=== PATIENT | female | born 1990 | race Caucasian/White ===

== ENCOUNTER 2018-01-18 10:05 | Inpatient (IN) | payer OTHER, MEDICAID ==
--- NOTE | 2018-01-18 10:40 | HP ---
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 FOB is not a carrier Pertinent Past Surgical History: See Records Past Surgical History Comment: 1990 Gastrointestinal surgery to correct gastroschisis 2011 Inguinal hernia repair Pertinent Family History: See Records Family History Comment: Thyroid disease, HTN, asthma, SD, COPD - Antepartal Records Antepartal Records: Reviewed, Uncomplicated Review of Systems Constitutional: Uncomfortable - with UCs CV Complaint: No Respiratory: Shortness of Breath: No Gastrointestinal: No Nausea/Vomiting, Normal Bowel Movement Genitourinary: Leaking Fluid - Since arrival, No Dysuria Musculoskeletal: Contractions Neurological: No Headache, No Visual Changes Movement: Normal Exam Allergies/Adverse Reactions: Allergies MS Shellfish Allergy [Shellfish Allergy] Allergy (Intermediate, Verified 08:47) Rash BP 147/107 repeat 140/101 HR 112 RR 20 T 98.2 - Measurements Height: 5 ft 2 in Weight: 225 lb Weight in lbs: 225 Body Mass Index (BMI): 41.1 Pre- Weight: 190 lb Weight Gained This : 35 lbs and 0 ozs - Exam Abdomen: No Upper Quadrant Pain Breast: Breast Exam Deferred CVA: No CVA Tenderness Extremities: No Edema Heart: Normal Rhythm/Heart Sounds HEENT: No Significant Findings Lungs: Clear Bilaterally Rectal: Rectal Exam Deferred Thyroid: No Thyromegaly - Cervical Exam 4cm/100%/vtx -1 - Membranes Membrane Status: SROM - clear - Ultrasound/Biophysical Profile Ultrasound Status: Not Done EFM Findings - External Monitor Findings Baseline Heart Rate: 145 External Monitor Findings: Accelerations Present, No Pattern of Variable or Late Decelerations, Variability Moderate, Baseline Stable External Monitor Findings Comment: No evidence of metabolic acidemia Contractions: Regular, Strong, 45-90 Seconds Assessment/Plan - Reason for Visit Reason for Visit: Labor - Obstetrical Risk Factors Risk Factors Comment: Elevated BP on arrival of unknown significance - Plan Plan: Active Labor Plan Comment: Pt requests pain medication. Will draw BP labs to rule out pre-eclampsia - Date/Time of Admission Date of Admission: 01/18/18 Time of Admission: 10:30
[2018-01-18] MEDS ORDERED: OBEPIDURAL* 250 ML EPIDURAL ONE (10:49)
[2018-01-18 10:59] LABS: ABS Basophils 0.1 10^3/ul (0-0.2); ABS Eosinophils 0.1 10^3/ul (0-0.6); ABS Lymphocytes 2.7 10^3/ul (1.0-4.8); ABS Monocytes 1.2 10^3/ul (0-0.8); ABS Nucleated RBC 0 10^3/ul; Eosinophil % 0.6 % (0-6); Hematocrit 35 % (35-47); Lymphocyte % 14.7 % (25-47); Mean Corpuscular HGB Conc 34 g/dl (31-36); Mean Corpuscular Hemoglobin 30 pg (27-31); Mean Corpuscular Volume 88 fL (80-97); Mean Platelet Volume 7.8 um3 (7.4-10.4); Nucleated Red Blood Cells % 0; Platelet Count 311 10^3/ul (150-450); Red Blood Count 4.01 10^6/ul (4.0-5.4); Red Cell Distribution Width 13 % (10.5-15)
[2018-01-18 11:08] LABS: Urine Appearance Cloudy; Urine Blood 3+ (Negative); Urine Color Amber; Urine Ketones Negative (Negative); Urine Protein 2+(100 mg/dL) (Negative); Urine Red Blood Cell 3+(>10/hpf) (Absent); Urine Specific Gravity 1.016 (1.010-1.030); Urine Urobilinogen Negative (Negative); Urine White Blood Cell 3+(>20/hpf) (Absent)
[2018-01-18] MEDS ORDERED: Phenylephrine IV* 40 MCG/ML 10 ML SYRINGE IV PUSH PRN ×2 (11:27)
[2018-01-18] MEDS ORDERED: EPHEDrine (Pressors)* 50 MG/ML VIAL IV PUSH PRN ×2 (11:27)
[2018-01-18] MEDS ORDERED: Sodium Citrate/Citric Acid* 15 ML UDC PO PRN (11:27)
[2018-01-18] MEDS ORDERED: Famotidine TAB* 20 MG PO PRN (11:27)
[2018-01-18 11:30] LABS: EGFR Non-African American 86.7 (>60); Uric Acid 5.9 mg/dL (2.3-6.6)
[2018-01-18] MEDS ORDERED: OBEPIDURAL* 250 ML EPIDURAL SCH (12:00)
[2018-01-18] MEDS ORDERED: Oxytocin in LR* 20 UNITS/1,000 ML BAG IVPB ONE (19:24)
[2018-01-18] MEDS ORDERED: Acetaminophen TAB* 325 MG PO PRN (19:47)
[2018-01-18] MEDS ORDERED: Glycerin ADULT SUPP PR PRN (19:47)
[2018-01-18] MEDS ORDERED: Oxytocin in LR* 20 UNITS/1,000 ML BAG IVPB SCH (20:00)
[2018-01-18] MEDS ORDERED: Simethicone TAB* 80 MG TAB.CHEW PO SCH (21:00)
[2018-01-18] MEDS: Ibuprofen TAB* 600 MG PO PRN (21:17)
[2018-01-18] MEDS: Dibucaine 1% 28.35 GM TUBE PR PRN (21:18)
[2018-01-18] MEDS: Witch Hazel PAD* JAR TOPICAL PRN (21:18)
[2018-01-19] MEDS: Ibuprofen TAB* 600 MG PO PRN ×4 (03:29→22:29)
[2018-01-19 07:10] LABS: Hematocrit 34 % (35-47); Hemoglobin 11.3 g/dl (12.0-16.0); Mean Corpuscular HGB Conc 34 g/dl (31-36); Mean Corpuscular Hemoglobin 30 pg (27-31); Mean Corpuscular Volume 88 fL (80-97); Mean Platelet Volume 7.8 um3 (7.4-10.4); Platelet Count 299 10^3/ul (150-450); Red Blood Count 3.83 10^6/ul (4.0-5.4); Red Cell Distribution Width 13 % (10.5-15); White Blood Count 29.4 10^3/ul (3.5-10.8)
[2018-01-19 08:43] LABS: ABS Basophils 0.1 10^3/ul (0-0.2); ABS Eosinophils 0.1 10^3/ul (0-0.6); ABS Lymphocytes 3.7 10^3/ul (1.0-4.8); ABS Neutrophils 23.5 10^3/ul (1.5-7.7); ABS Nucleated RBC 0 10^3/ul; Eosinophil % 0.2 % (0-6); Lymphocyte % 12.7 % (25-47); Nucleated Red Blood Cells % 0.1
[2018-01-19] MEDS ORDERED: Ferrous Gluconate TAB* 324 MG TAB PO SCH (09:00)
[2018-01-19] MEDS: Docusate CAP* 100 MG PO SCH ×4 (09:29→20:33)
--- NOTE | 2018-01-19 15:02 | OP ---
OPERATIVE REPORT: DATE OF OPERATION: 01/18/18 DATE OF : 89 SURGEON: Rebel Montoya MD ANESTHESIA: 10 cc of 1% lidocaine. PRE-OP DIAGNOSIS: at 39 weeks, post spontaneous vaginal delivery over a third degree lacer ation in the posterior vaginal wall and perineum. POST-OP DIAGNOSIS: at 39 weeks, post spontaneous vaginal delivery over a third degree lace ration in the posterior vaginal wall and perineum. OPERATIVE PROCEDURE: Repair of third degree laceration with local anesthetic. DESCRIPTION OF PROCEDURE: The repair was done in the usual fashion with a combination of interrupted 3-0 Polysorb sutures and a running suture with good approximation at the perineal muscle capsule and also the vaginal mucosa and vaginal epithelium. The patient tolerated the procedure well. There wa s no blood loss. No complications. After the procedure was done, the patient's perineum was clean a nd the patient was left in the labor and delivery room. [id number]/[facility] #: [id number]
[2018-01-20] MEDS: Witch Hazel PAD* JAR TOPICAL PRN ×2 (00:25→19:58)
[2018-01-20] MEDS: Ibuprofen TAB* 600 MG PO PRN ×3 (04:59→19:58)
[2018-01-20] MEDS: Dibucaine 1% 28.35 GM TUBE PR PRN ×2 (05:08→19:58)
[2018-01-20 09:44] VITALS: BP 148/76
[2018-01-20] MEDS: Docusate CAP* 100 MG PO SCH ×3 (12:51→19:58)
== END 2018-01-20 20:30 | disposition home or self-care (01) | DRG 560 ==
LOC: MCHOBOUT 10:05 → MCHOB 10:28
PROVIDERS: ADMIT Midwife; ATTEND Midwife
PROC: 10E0XZZ Delivery of Products of Conception, External Approach (ICD-10-PCS; principal; 2018-01-18)
PROC: 4A1HX4Z Monitoring of Products of Conception, Cardiac Electrical Activity, External Approach (ICD-10-PCS; 2018-01-18)
PROC: 0KQM0ZZ Repair Perineum Muscle, Open Approach (ICD-10-PCS; 2018-01-18)
DX: O69.1XX0 Labor and delivery complicated by cord around neck, with compression, not applicable or unspecified (principal); Z68.41 Body mass index [BMI] 40.0-44.9, adult; Z37.0 Single live birth; O99.214 Obesity complicating childbirth; O16.4 Unspecified maternal hypertension, complicating childbirth; E66.01 Morbid (severe) obesity due to excess calories; Z3A.39 39 weeks gestation of pregnancy; Z91.013 Allergy to seafood; Z14.8 Genetic carrier of other disease; O70.1 Second degree perineal laceration during delivery
CPT/HCPCS: 36415; 80053; 81003; 81015; 84550; 85025; 86850; 86900; 86901; 87086; A9270-GY

== ENCOUNTER 2018-05-30 17:39 | Emergency (ER) | payer OTHER ==
--- NOTE | 2018-05-30 19:57 | ED ---
Dizziness - HPI Summary HPI Summary: This is Sherrie torres, documenting for attending Ant Hussein MD. This patient is a 28 year old F presenting to [facility] as instructed by here PCP, Dr. Cruz, with a chief complaint of intermittent dizziness and high blood pressure for the past week. She describes the dizziness as spinning, that is unchanged by position or movement. 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 She reports recent bloodwork with Dr. Cruz that revealed thyroid issues. Denies fever chills, CP, SOB abdominal pain, urinary symptoms, and trouble speaking or walking. Patient is four weeks post-. She denies possibility of ; she has IUD. I, Dr. Hussein personally performed the services described in this documentation as scribed in my presence and it is both accurate and complete. - History Of Current Complaint Chief Complaint: EDHypertension Stated Complaint: ?THYROID HEADACHES DIZZY Time Seen by Provider: 05/30/18 19:38 Hx Obtained From: Patient Onset/Duration: Still Present Timing: Intermittent Episode Lasting Character: Room Spinning, Dizzy Aggravating Factor(s): Nothing Alleviating Factor(s): Nothing Associated Signs And Symptoms: Positive: Other: - high blood pressure - Allergies/Home Medications Allergies/Adverse Reactions: Allergies Allergy/AdvReac Type Severity Reaction Status Date / Time shellfish derived Allergy Intermediate Rash Verified 05/30/18 18:23 PMH/Surg Hx/FS Hx/Imm Hx Endocrine/Hematology History: Denies: Hx Diabetes, Hx Systemic Lupus Erythematosus Cardiovascular History: Denies: Hx Congestive Heart Failure, Hx Hypertension Respiratory History: Reports: Hx Asthma - SLIGHT GI History: Reports: Other GI Disorders - GASTRIOSKESIS, PAIN RIGHT UMBILICAL 6 MO. WORSE NOW PER PT History: Denies: Hx Dialysis, Hx Renal Disease Musculoskeletal History: Denies: Hx Rheumatoid Arthritis Sensory History: Denies: Hx Contacts or Glasses, Hx Hearing Aid Opthamlomology History: Denies: Hx Contacts or Glasses - Cancer History Hx Chemotherapy: No - Surgical History Surgery Procedure, Year, and Place: GASTRIOSKESIS Hx Anesthesia Reactions: No Infectious Disease History: No Infectious Disease History: Denies: Traveled Outside the [place] in Last 30 Days - Family History Known Family History: Positive: Other - thyroid brother and grandmother - Social History Alcohol Use: None Substance Use Type: Reports: None Smoking Status (MU): Never Smoked Tobacco Review of Systems Positive: Other - high blood pressure. Negative: Fever, Chills Negative: Erythema Negative: Sore Throat Negative: Chest Pain Negative: Shortness Of Breath, Cough Negative: Abdominal Pain, Vomiting, Diarrhea, Nausea Negative: dysuria, hematuria Negative: Myalgia, Edema Negative: Rash Neurological: Negative - dizziness All Other Systems Reviewed And Are Negative: Yes Physical Exam - Summary Physical Exam Summary: Constitutional: Well-developed, Well-nourished, Alert. (-) Distressed Skin: Warm, Dry HENT: Normocephalic; Atraumatic Eyes: Conjunctiva normal Neck: Musculoskeletal ROM normal neck. (-) JVD, (-) Stridor, (-) Tracheal deviation Cardio: Rhythm regular, rate normal, Heart sounds normal; Intact distal pulses; The pedal pulses are 2+ and symmetric. Radial pulses are 2+ and symmetric. (-) Murmur Pulmonary/Chest wall: Effort normal. (-) Respiratory distress, (-) Wheezes, (-) Rales Abd: Soft. (-) Tenderness, (-) Distension, (-) Guarding, (-) Rebound Musculoskeletal: (-) Edema Lymph: (-) Cervical adenopathy Neuro: Alert, Oriented x3, Strength normal, Cranial nerves II-XII are grossly intact. (-) Dysmetria, (-) Nystagmus, (-) Ataxia by finger to nose testing, (-) Sensory deficit. Psych: Mood and affect Normal Triage Information Reviewed: Yes Vital Signs On Initial Exam: Initial Vitals Temp Pulse Resp BP Pulse Ox 98 F 110 20 127/86 98 05/30/18 18:16 05/30/18 18:16 05/30/18 18:16 05/30/18 18:16 05/30/18 18:16 Vital Signs Reviewed: Yes Diagnostics - Vital Signs Vital Signs Temp Pulse Resp BP Pulse Ox 05/30/18 18:16 98 F 110 20 127/86 98 - Laboratory Result Diagrams: 05/30/18 20:19 05/30/18 20:19 Lab Statement: Any lab studies that have been ordered have been reviewed, and results considered in the medical decision making process. Dizzy Course/Dx - Course Course Of Treatment: 28 year old F presenting to [facility] as instructed by here PCP , Dr. Cruz, with a chief complaint of intermittent dizziness and high blood pressure for the past week. She describes the dizziness as spinning, that is unchanged by position or movement. 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 She reports recent bloodwork with Dr. Cruz that revealed thyroid issues. Bloodwork reveals an almost undetectable TSH. Pt has been noted to have HTN and tachycardica in the ED. Due to TSH levels will get pt started on Beta-blockers and will confirm testing on an outpatient basis. I instructed patient to perform BP readings at home and to keep a log of results. Patient is instructed to follow up with Dr. Cruz or [facility] tomorrow. Patient reports recent yeast infection, and was instructed to tow picker OTC monistat for tx. Patient has thyroid scan tomorrow morning. - Diagnoses Provider Diagnoses: Dizziness, Tachycardia, Hypertension, Vaginal candidiasis, Hyperthyroidism Discharge - Sign-Out/Discharge Documenting (check all that apply): Patient Departure - Discharge Plan Condition: Stable Disposition: HOME Prescriptions: Metoprolol Tartrate TAB* [Lopressor TAB*] 12.5 mg PO BID #14 tab Metoprolol Tartrate TAB* [Lopressor TAB*] 12.5 mg PO BID #14 tab Patient Education Materials: Hyperthyroidism (ED), Hypertension (ED), Dizziness (ED) Referrals: Felipe Cruz MD [Primary Care Provider] - 1 Day [facility] [Outside] - 1 Day Additional Instructions: RETURN TO THE EMERGENCY DEPARTMENT FOR CHANGING OR WORSENING SYMPTOMS.
[2018-05-30 20:24] LABS: Urine Appearance Cloudy; Urine Blood Negative (Negative); Urine Color Yellow; Urine Ketones Negative (Negative); Urine Protein Negative (Negative); Urine Red Blood Cell Trace(0-2/hpf) (Absent); Urine Urobilinogen Negative (Negative); Urine White Blood Cell Trace(0-5/hpf) (Absent)
[2018-05-30 20:26] LABS: Hematocrit 38 % (35-47); Mean Corpuscular HGB Conc 34 g/dl (31-36); Mean Corpuscular Hemoglobin 29 pg (27-31); Mean Corpuscular Volume 87 fL (80-97); Mean Platelet Volume 7.2 um3 (7.4-10.4); Platelet Count 298 10^3/ul (150-450); Red Blood Count 4.43 10^6/ul (4.00-5.40); Red Cell Distribution Width 13 % (10.5-15); White Blood Count 13.8 10^3/ul (3.5-10.8)
[2018-05-30 20:42] LABS: EGFR Non-African American 88.6 (>60)
[2018-05-30] MEDS ORDERED: Metoprolol Tartrate TAB* 25 MG PO ONE (21:18)
[2018-05-30 21:53] VITALS: BP 00/00
== END 2018-05-30 21:52 | disposition home or self-care (01) ==
LOC: ED 17:39
DX: R42 Dizziness and giddiness (principal); R00.0 Tachycardia, unspecified; I10 Essential (primary) hypertension; B37.3 Candidiasis of vulva and vagina; E05.90 Thyrotoxicosis, unspecified without thyrotoxic crisis or storm; Z91.013 Allergy to seafood; Z83.49 Family history of other endocrine, nutritional and metabolic diseases
CPT/HCPCS: 36415; 80053; 81003; 81015; 84439; 84443; 84702; 85027; 87086; 99282

== ENCOUNTER 2022-06-05 15:12 | Inpatient (IN) ==
[2022-06-05] MEDS ORDERED: Buffered Lidocaine 1% SYRIN 1 ml INTRADERM ONE (16:38)
[2022-06-05] MEDS ORDERED: Lactated Ringers 1000 ml BAG 1,000 ML IV ONE ×2 (16:38→19:50)
[2022-06-05] MEDS ORDERED: Oxytocin in LR 20,000 MILLI.UNIT/1,000 ML BAG IV SCH ×2 (16:45→22:45)
[2022-06-05] MEDS ORDERED: Lactated Ringers 1000 ml BAG 1,000 ML IV SCH ×4 (17:00→23:00)
[2022-06-05 17:37] LABS: ABS Basophils 0.1 10^3/ul (0-0.2); ABS Eosinophils 0.1 10^3/ul (0-0.6); ABS Lymphocytes 2.3 10^3/ul (1.0-4.8); ABS Monocytes 0.8 10^3/ul (0-0.8); ABS Neutrophils 10.5 10^3/ul (1.5-7.7); Eosinophil % 0.5 %; Hematocrit 34 % (35-47); Hemoglobin 11.3 g/dL (12.0-16.0); Lymphocyte % 16.6 %; Mean Corpuscular HGB Conc 33 g/dL (31-36); Mean Corpuscular Hemoglobin 29 pg (27-31); Mean Corpuscular Volume 88 fL (80-97); Mean Platelet Volume 8.1 fL (7.4-10.4); Nucleated Red Blood Cells % 0.1; Platelet Count 267 10^3/uL (150-450); Red Blood Count 3.89 10^6 /uL (3.70-4.87); Red Cell Distribution Width 14 % (10-15); White Blood Count 13.7 10^3/uL (3.5-10.8)
[2022-06-05 18:01] LABS: Urine Benzodiazepine Screen None Detected (None Detect); Urine Cannabinoids Screen None Detected (None Detect); Urine Opiates Screen None Detected (None Detect)
[2022-06-05] MEDS ORDERED: OBEPIDURAL (200 ML) 200 ML EPIDURAL ONE (19:03)
[2022-06-05] MEDS ORDERED: Lidocaine 2% w/ EPI 1:200,000 MPF 20 ML SDV VIAL ONE (19:12)
[2022-06-05] MEDS ORDERED: Lactated Ringers 1000 ml BAG 500 ML IV PRN ×2 (19:50)
[2022-06-05] MEDS ORDERED: Phenylephrine 40 mcg/mL 10mL (400mcg) SYRINGE IV PUSH PRN ×2 (19:50)
[2022-06-05] MEDS ORDERED: Sodium Citrate/Citric Acid LIQ 15 ML UDC PO PRN (19:50)
[2022-06-05] MEDS ORDERED: OBEPIDURAL (200 ML) 200 ML EPIDURAL SCH (20:00)
[2022-06-05] MEDS ORDERED: Witch Hazel PAD JAR TOPICAL PRN (22:31)
[2022-06-05] MEDS ORDERED: Dibucaine 1% OINT 28.35 GM TUBE PR PRN (22:31)
[2022-06-06 06:11] LABS: ABS Eosinophils 0.1 10^3/ul (0-0.6); ABS Lymphocytes 2.2 10^3/ul (1.0-4.8); ABS Monocytes 1.1 10^3/ul (0-0.8); ABS Neutrophils 14.2 10^3/ul (1.5-7.7); Eosinophil % 0.3 %; Hematocrit 32 % (35-47); Hemoglobin 10.6 g/dL (12.0-16.0); Lymphocyte % 12.7 %; Mean Corpuscular HGB Conc 33 g/dL (31-36); Mean Corpuscular Hemoglobin 30 pg (27-31); Mean Corpuscular Volume 88 fL (80-97); Mean Platelet Volume 7.8 fL (7.4-10.4); Nucleated Red Blood Cells % 0.1; Platelet Count 231 10^3/uL (150-450); Red Blood Count 3.61 10^6 /uL (3.70-4.87); Red Cell Distribution Width 14 % (10-15); White Blood Count 17.6 10^3/uL (3.5-10.8)
[2022-06-07 09:18] VITALS: BP 123/76
== END 2022-06-07 12:20 | disposition home or self-care (01) | DRG 560 ==
LOC: MCHOBOUT 15:12 → MCHOB 16:15
PROVIDERS: ADMIT Midwife; ATTEND Midwife